=== PATIENT | female | born 1970 | race Caucasian/White ===

== ENCOUNTER 2023-12-05 17:19 | Inpatient (IN) | payer MEDICARE, OTHER ==
[~2023-12-05] VITALS: Ht 165.1 cm; Wt 59.6 kg
[~2023-12-05 17:19] MED LIST: GABA-532 PO
[2023-12-05 18:25] LABS: BASOPHILS % 0.6 % (0.0-2.0); EOSINOPHILS % 0.1 % (0.0-5.0); HEMATOCRIT. 49.3 % (36.0-48.0); HEMOGLOBIN. 16.7 g/dL (12.0-16.0); LYMPHOCYTES % 13.9 % (20.0-50.0); MEAN CORPUSCULAR HEMOGLOBIN 30.3 pg (28.0-32.0); MEAN CORPUSCULAR HGB CONC 33.9 g/dL (31.0-37.0); MEAN CORPUSCULAR VOLUME 89.2 fL (81.0-99.0); MEAN PLATELET VOLUME 9.4 fl (7.4-10.4); MONOCYTES % 2.6 % (2.0-8.0); NEUTROPHILS % 82.8 % (40.0-76.0); PLATELET 329 x1000/uL (130-400); RED BLOOD CELL COUNT 5.53 mill/uL (4.2-5.4); RED CELL DISTRIBUTION WIDTH 13.2 % (11.6-14.6); WHITE BLOOD COUNT 9.9 x1000/uL (4.5-11.0)
[2023-12-05 18:27] LABS: CHLORIDE 102 mEq/L (98-107); POTASSIUM 3.8 mEq/L (3.5-5.1); SODIUM 138 mEq/L (136-145)
[2023-12-05 18:28] LABS: CARBON DIOXIDE 24 mEq/L (21-32)
[2023-12-05 18:29] LABS: CALCIUM 11.5 mg/dL (8.7-10.4)
[2023-12-05 18:34] LABS: CREATININE 0.7 mg/dL (0.6-1.0); GLUCOSE 102 mg/dL (70-105); UREA NITROGEN BLOOD 12 mg/dL (9-23)
[2023-12-05 18:35] LABS: ALANINE AMINOTRANSFERASE 23 IU/L (10-49)
[2023-12-05 18:36] LABS: ALBUMIN 5.8 g/dL (3.2-4.8); ASPARTATE AMINOTRANSFERASE 22 IU/L (<34); BILIRUBIN TOTAL 1.2 mg/dL (0.1-1.0); PROTEIN TOTAL 9.3 g/dL (6.0-8.3)
[2023-12-05 18:38] LABS: INR 0.9; PROTHROMBIN TIME 10.3 sec (9.6-11.0)
[2023-12-05] MEDS: DIPHENHYDRAMINE 50MG/ML VIAL IV ONE (19:24)
[2023-12-05] MEDS: KETOROLAC 15MG/ML VIAL IV ONE (19:25)
[2023-12-05] MEDS: METOCLOPRAMIDE HCL 10MG/2ML VIAL IV ONE (19:25)
[2023-12-05] MEDS: ACETAMINOPHEN 325MG TABLET PO ONE (19:26)
[2023-12-05] MEDS: LIDOCAINE 5% PATCH TOP SCH (19:28)
[2023-12-05] MEDS: SODIUM CHLORIDE 0.9% 1,000 ML IV ONE (19:51)
[2023-12-05] MEDS ORDERED: HYDROCODONE/ACETAMINOPHEN 5/325MG TABLET PO PRN (20:00)
[2023-12-05] MEDS ORDERED: CLONIDINE 0.1MG TABLET PO PRN (20:00)
[2023-12-05] MEDS ORDERED: GUAIFENESIN 200MG/10ML SUGAR FREE UDC PO PRN (20:00)
[2023-12-05] MEDS ORDERED: ACETAMINOPHEN 325MG TABLET PO PRN (20:00)
[2023-12-05] MEDS ORDERED: MAGNESIUM/ALUMINUM HYDROXIDE/SIMETHICONE 30ML UDC PO PRN (20:00)
[2023-12-05] MEDS ORDERED: ONDANSETRON HCL 4MG/2ML INJ IV PRN (20:00)
[2023-12-05] MEDS ORDERED: IPRATROPIUM/ALBUTEROL 0.5-3(2.5)MG/3ML NEB HHN PRN (20:00)
[2023-12-05] MEDS ORDERED: DOCUSATE SODIUM 100MG CAPSULE PO PRN (20:00)
[2023-12-05] MEDS: SODIUM CHLORIDE 0.9% 1,000 ML IV SCH (21:36)
[2023-12-05] MEDS: MECLIZINE 12.5MG TABLET PO PRN (22:00)
[2023-12-05 23:42] LABS: CREATINE KINASE 62 IU/L (34-145)
[2023-12-06] VITALS: BP 106/55; PULSE 61; RESP 18; TEMP 36.114; O2SAT 96
[2023-12-06 01:34] VITALS: BP 106/55; PULSE 61; RESP 18; TEMP 36.6404
[2023-12-06 04:00] VITALS: BP 104/58; PULSE 62; RESP 18; TEMP 36.6696; O2SAT 96
[2023-12-06 07:26] LABS: BASOPHILS % 0.8 % (0.0-2.0); EOSINOPHILS % 1.7 % (0.0-5.0); HEMATOCRIT. 37.7 % (36.0-48.0); HEMOGLOBIN. 12.8 g/dL (12.0-16.0); MEAN CORPUSCULAR HEMOGLOBIN 30.5 pg (28.0-32.0); MEAN CORPUSCULAR HGB CONC 34.1 g/dL (31.0-37.0); MEAN CORPUSCULAR VOLUME 89.5 fL (81.0-99.0); MEAN PLATELET VOLUME 9.4 fl (7.4-10.4); MONOCYTES % 6.4 % (2.0-8.0); NEUTROPHILS % 53.1 % (40.0-76.0); PLATELET 283 x1000/uL (130-400); RED BLOOD CELL COUNT 4.21 mill/uL (4.2-5.4); RED CELL DISTRIBUTION WIDTH 13.7 % (11.6-14.6); WHITE BLOOD COUNT 6.7 x1000/uL (4.5-11.0)
[2023-12-06 07:34] LABS: CARBON DIOXIDE 23 mEq/L (21-32); CHLORIDE 111 mEq/L (98-107); POTASSIUM 4.2 mEq/L (3.5-5.1); SODIUM 143 mEq/L (136-145)
[2023-12-06 07:39] LABS: CREATINE KINASE 36 IU/L (34-145); CREATININE 0.7 mg/dL (0.6-1.0); GLUCOSE 105 mg/dL (70-105)
[2023-12-06 07:40] LABS: T4 FREE 0.73 ng/dL (0.89-1.76); THYROID STIMULATING HORMONE 2.11 uIU/mL (0.55-4.78); TRIGLYCERIDE 246 mg/dL (0-150); UREA NITROGEN BLOOD 14 mg/dL (9-23)
[2023-12-06 07:41] LABS: CHOLESTEROL 206 mg/dL (<200); LDL CHOLESTEROL 128 mg/dL (5-100)
[2023-12-06 07:42] LABS: HDL CHOLESTEROL 37 mg/dL (>65)
[2023-12-06 12:00] VITALS: BP 138/76; PULSE 72; RESP 18; TEMP 36.22512; O2SAT 96
[2023-12-06 16:00] VITALS: BP 122/73; PULSE 70; RESP 18; TEMP 36.89184; O2SAT 95
[2023-12-06] MEDS: MORPHINE SULFATE 2 MG/ML INJ (NOT FOR IM USE) IV PRN (18:02)
[2023-12-06] MEDS ORDERED: NALOXONE HCL 0.4MG/ML VIAL IV PRN (19:15)
[2023-12-06 20:00] VITALS: BP 118/65; PULSE 69; RESP 17; TEMP 36.33624; O2SAT 96
[2023-12-06] MEDS: ENOXAPARIN 40MG/0.4ML SYR SUBCUT SCH (20:48)
[2023-12-06] MEDS: FAMOTIDINE 20MG TABLET PO SCH (20:49)
[2023-12-06] MEDS: ACETAMINOPHEN 325MG TABLET PO PRN (20:55)
[2023-12-07 04:00] VITALS: BP 114/74; PULSE 56; RESP 17; TEMP 36.3918; TEMP 36.39180; O2SAT 97
[2023-12-07 08:06] LABS: BASOPHILS % 1.3 % (0.0-2.0); EOSINOPHILS % 3.2 % (0.0-5.0); HEMATOCRIT. 37.6 % (36.0-48.0); HEMOGLOBIN. 12.6 g/dL (12.0-16.0); LYMPHOCYTES % 55.2 % (20.0-50.0); MEAN CORPUSCULAR HEMOGLOBIN 30.6 pg (28.0-32.0); MEAN CORPUSCULAR HGB CONC 33.4 g/dL (31.0-37.0); MEAN CORPUSCULAR VOLUME 91.6 fL (81.0-99.0); MEAN PLATELET VOLUME 9.4 fl (7.4-10.4); MONOCYTES % 4.2 % (2.0-8.0); NEUTROPHILS % 36.1 % (40.0-76.0); PLATELET 260 x1000/uL (130-400); RED CELL DISTRIBUTION WIDTH 13.5 % (11.6-14.6); WHITE BLOOD COUNT 5.5 x1000/uL (4.5-11.0)
[2023-12-07 08:11] LABS: CHLORIDE 110 mEq/L (98-107); POTASSIUM 4.1 mEq/L (3.5-5.1); SODIUM 140 mEq/L (136-145)
[2023-12-07 08:12] LABS: CARBON DIOXIDE 25 mEq/L (21-32)
[2023-12-07 08:13] LABS: CALCIUM 9.4 mg/dL (8.7-10.4)
[2023-12-07 08:17] LABS: CREATININE 0.7 mg/dL (0.6-1.0); GLUCOSE 96 mg/dL (70-105)
[2023-12-07 08:18] LABS: UREA NITROGEN BLOOD 13 mg/dL (9-23)
[2023-12-07 08:26] VITALS: RESP 18
[2023-12-07] MEDS: MECLIZINE 12.5MG TABLET PO PRN (13:47)
[2023-12-07 16:58] VITALS: BP 125/80; PULSE 80; TEMP 98.4; O2SAT 99
== END 2023-12-07 19:15 | disposition home health service (06) | DRG 552 ==
LOC: ER 17:19 → EDBEDREQ 18:15 → 6EST 20:26 → EDBEDREQTM 20:40 → EDBEDREQSVC 20:40 → EDBEDREQ 20:40
PROVIDERS: ADMIT Preventive Medicine Clinical Informatics; ATTEND Preventive Medicine Clinical Informatics
DX: M48.02 Spinal stenosis, cervical region (principal); G95.89 Other specified diseases of spinal cord; D75.1 Secondary polycythemia; Z88.0 Allergy status to penicillin; Z98.1 Arthrodesis status
CPT/HCPCS: 36415; 71045; 72141; 80048; 80053; 80061; 82550; 83735; 84439; 84443; 85025; 86850; 86900; 93005; 97162; 99285; J1200; J1650; J1885; J2270; J2765; J7030; J8597